=== PATIENT | male | born 1990 | race Caucasian/White ===

== ENCOUNTER 2019-01-18 15:17 | Emergency (ER) | payer OTHER ==
--- NOTE | 2019-01-18 15:22 | PDOC ---
Rapid Medical Evaluation Time Seen by Provider: 01/18/19 15:20 Medical Evaluation: 01/18/19 15:20 I have performed a brief in-person evaluation of this patient. The patient presents with a chief complaint of: left flank and LLQ pain Pertinent physical exam findings: Left CVAT. I have ordered the following: urine, labs The patient will proceed to the ED for further evaluation. Discharge Disposition - Diagnosis Flank pain - Referrals - Patient Instructions - Post Discharge Activity
[2019-01-18 15:44] LABS: BASO % 0.2 % (0-2.0); EOS % 0.1 % (0-4.5); HEMATOCRIT 42.1 % (35.4-49); HEMOGLOBIN 14.5 GM/dL (11.7-16.9); LYMPH % 10.3 % (8-40); MCH 30.5 pg (25.7-33.7); MCHC 34.4 g/dl (32.0-35.9); MEAN CELL VOLUME 88.7 fl (80-96); MEAN PLT VOLUME 7.7 fl (7.5-11.1); MONO % 5.2 % (3.8-10.2); NEUT % 84.2 % (42.8-82.8); PLATELET COUNT 227 K/MM3 (134-434); RBC 4.74 M/mm3 (4.00-5.60); RDW 13.3 % (11.9-15.9); WHITE BLOOD COUNT 9.9 K/mm3 (4.0-10.0)
[2019-01-18 16:13] LABS: ANION GAP 7 MMOL/L (8-16); BLOOD UREA NITROGEN 20 mg/dL (7-18); CALCIUM 8.6 mg/dL (8.5-10.1); CHLORIDE 102 mmol/L (98-107); CO2 26 mmol/L (21-32); CREATININE 0.8 mg/dL (0.55-1.3); GLUCOSE,RANDOM 104 mg/dL (74-106); POTASSIUM 4.1 mmol/L (3.5-5.1); SODIUM 135 mmol/L (136-145)
--- NOTE | 2019-01-18 16:46 | PDOC ---
Attending Attestation - Resident Resident Name: Madison Melgoza
--- NOTE | 2019-01-18 17:09 | PDOC ---
History of Present Illness - General Chief Complaint: Pain, Acute Stated Complaint: LF SIDE ABD PAIN Time Seen by Provider: 01/18/19 15:20 - History of Present Illness Initial Comments: 28yo M with no significant PMH presenting with pain on his left side overlying his left flank and LLQ. Patient states he has never had anything like this before. 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 It has been constant and gradually getting worse, rated 10 /10 and sharp. No surgical history. Last bowel movement was this afternoon and was a normal formed brown stool without blood. No surgical history. Patient denies dysuria or hematuria. No nausea or vomiting. Denies genital pain or penile discharge. Took tylenol in the afternoon with minor relief of pain. No fevers or chills. PCP: None Past History - Past Medical History Allergies/Adverse Reactions: Allergies Allergy/AdvReac Type Severity Reaction Status Date / Time No Known Allergies Allergy Verified 01/18/19 15:27 - Suicide/Smoking/Psychosocial Hx Smoking History: Current every day smoker Have you smoked in the past 12 months: No Number of Cigarettes Smoked Daily: 6 Information on smoking cessation initiated: No Hx Alcohol Use: No Drug/Substance Use Hx: No Review of Systems - Review of Systems Comments:: Constitutional: no fever, no chills HEENT: no throat pain, no dysphagia Cardiovascular: no chest pain, no palpitations Respiratory: no cough, no shortness of breath Gastrointestinal: no nausea, no vomiting Genitourinary: no dysuria, no frequency Musculoskeletal: no myalgia, no arthralgia Skin: no rash, no itching Neurologic: no headache, no weakness *Physical Exam - Vital Signs Last Vital Signs Temp Pulse Resp BP Pulse Ox 98.6 F 89 20 145/95 100 01/18/19 15:21 01/18/19 15:21 01/18/19 15:21 01/18/19 15:21 01/18/19 15:21 - Physical Exam Comments: General: Awake, alert, and fully oriented, in no acute distress Head: No signs of trauma Eyes: EOMI, sclera anicteric ENT: Moist mucus membranes Neck: Normal ROM, supple Lungs: Lungs clear, Normal breath sounds Cardio: Regular rhythm, S1 and S2 present Abdomen: Soft, nondistended. Left flank pain present radiating to LLQ. No overlying rash or lesion. No rebound, guarding, or masses : Normal testicular exam Extremities: Normal range of motion, Distal pulses present SKIN: Warm, Dry, normal turgor Neurologic: Cranial nerves II through XII grossly intact. Normal speech ED Treatment Course - LABORATORY CBC & Chemistry Diagram: 01/18/19 22:59 01/18/19 15:30 - ADDITIONAL ORDERS Additional order review: Laboratory Results 01/18/19 15:30 Sodium 135 L Potassium 4.1 Chloride 102 Carbon Dioxide 26 Anion Gap 7 L BUN 20 H Creatinine 0.8 Creat Clearance w eGFR 114.29 Random Glucose 104 Calcium 8.6 01/18/19 15:30 RBC 4.74 MCV 88.7 MCHC 34.4 RDW 13.3 MPV 7.7 Neutrophils % 84.2 H Lymphocytes % 10.3 Monocytes % 5.2 Eosinophils % 0.1 Basophils % 0.2 Medical Decision Making - Medical Decision Making 28yo M with no significant PMH presenting with pain on his left side overlying his left flank and LLQ. DDX including but not limited to muscle strain, nephrolithiasis, diverticulitis , testicular torsion Toradol 30mg IV given Renal US ordered to rule out obstruction Labs unremarkable 01/18/19 18:16 Patient signed out to Dr. Gabriel 01/18/19 19:33 *DC/Admit/Observation/Transfer Diagnosis at time of Disposition: Flank pain, Perinephric hematoma - Discharge Dispostion Disposition: TRANSFER ACUTE CARE/OTHER HOSP - Referrals - Patient Instructions - Post Discharge Activity
[2019-01-18 17:33] LABS: EPI CELLS 2.9 /HPF (0-5/HPF); PH,URINE 5.5 (5.0-8.0); URINE APPEARANCE CLEAR; URINE BACTERIA 24.7 /hpf (NEGATIVE); URINE BILIRUBIN NEGATIVE (NEGATIVE); URINE CASTS 20 /hpf (0-8); URINE COLOR DK YELLOW; URINE GLUCOSE (UA) NEGATIVE (NEGATIVE); URINE KETONE TRACE (NEGATIVE); URINE LEUK ESTERASE NEGATIVE (NEGATIVE); URINE NITRITE NEGATIVE (NEGATIVE); URINE PROTEIN 1+ (NEGATIVE); URINE RBC 7 /hpf (0-4); URINE WBC 1 /hpf (0-5)
[2019-01-18] MEDS ORDERED: KETOROLAC TROMETHAMINE 30 MG/1 ML VIAL IVPUSH ONE (17:40)
[2019-01-18] MEDS ORDERED: KETOROLAC TROMETHAMINE 30 MG/1 ML VIAL ONE (18:02)
--- NOTE | 2019-01-18 18:51 | PDOC ---
Attending Attestation - Resident Resident Name: Madison Melgoza - [facility] HPI: 01/18/19 18:51 The patient is a 28 year old male with no significant past medical history who presents to the ED with left sided flank pain and left lower abdominal pain after lifting a heavy plank of wood this morning. He denies ever experiencing pain this severe and reports the pain has been constant since onset and gradually increasing in severity. He reports the pain is sharp, 10/10 in severity. He denies testicular pain or swelling. He denies urinary changes. He denies changes to his BMs. He denies any other symptoms. No Surgical Hx - Physicial Exam PE: 01/18/19 18:51 GENERAL: Awake, alert, and fully oriented, in no acute distress HEAD: No signs of trauma EYES: PERRLA, EOMI, sclera anicteric, conjunctiva clear ENT: Auricles normal inspection, hearing grossly normal, nares patent, oropharynx clear without exudates. Moist mucosa NECK: Normal ROM, supple, no lymphadenopathy, JVD, or masses LUNGS: Breath sounds equal, clear to auscultation bilaterally. No wheezes, and no crackles HEART: Regular rate and rhythm, normal S1 and S2, no murmurs, rubs or gallops ABDOMEN: (+) Left CVA tenderness. Soft, nontender, normoactive bowel sounds. No guarding, no rebound. No masses EXTREMITIES: Normal range of motion, no edema. No clubbing or cyanosis. No cords, erythema, or tenderness NEUROLOGICAL: Cranial nerves II through XII grossly intact. Normal speech, normal gait SKIN: Warm, Dry, normal turgor, no rashes or lesions noted. <Patricia Ortiz - Last Filed: 01/18/19 18:51> - Medical Decision Making 01/20/19 09:53 Pt presents to the ED complaining of L sided flank pain. Symptoms most concerning for nephrolithiasis vs muscular flank pain. No concerning testicular symptoms or exam. Will check renal US and give pain control and reassess. <Marika Gallegos - Last Filed: 01/20/19 10:47> Attestations - Attestations 01/18/19 18:51 Documentation prepared by Patricia Ortiz, acting as esthetician and manager medical spa for Marika Gallegos MD <Patricia Ortiz - Last Filed: 01/18/19 18:51>
--- NOTE | 2019-01-18 19:34 | PDOC ---
*Physical Exam - Vital Signs Last Vital Signs Temp Pulse Resp BP Pulse Ox 98.6 F 89 20 145/95 100 01/18/19 15:21 01/18/19 15:21 01/18/19 15:21 01/18/19 15:21 01/18/19 15:21 ED Treatment Course - LABORATORY CBC & Chemistry Diagram: 01/18/19 22:59 01/18/19 15:30 - ADDITIONAL ORDERS Additional order review: Laboratory Results 01/18/19 01/18/19 17:22 15:30 Sodium 135 L Potassium 4.1 Chloride 102 Carbon Dioxide 26 Anion Gap 7 L BUN 20 H Creatinine 0.8 Creat Clearance w eGFR 114.29 Random Glucose 104 Calcium 8.6 Urine Color Dk yellow Urine Appearance Clear Urine pH 5.5 Ur Specific [place] 1.036 H Urine Protein 1+ H Urine Glucose (UA) Negative Urine Ketones Trace H Urine Blood Trace Urine Nitrite Negative Urine Bilirubin Negative Urine Urobilinogen 1.0 Ur Leukocyte Esterase Negative Urine WBC (Auto) 1 Urine RBC (Auto) 7 Urine Casts (Auto) 20 U Epithel Cells (Auto) 2.9 Urine Bacteria (Auto) 24.7 01/18/19 15:30 RBC 4.74 MCV 88.7 MCHC 34.4 RDW 13.3 MPV 7.7 Neutrophils % 84.2 H Lymphocytes % 10.3 Monocytes % 5.2 Eosinophils % 0.1 Basophils % 0.2 - Medications Given in the ED: ED Medications Discontinued Medications Generic Name Dose Route Start Last Admin Trade Name Freq PRN Reason Stop Dose Admin Ketorolac Tromethamine 30 mg 01/18/19 17:40 01/18/19 18:09 Toradol Injection - IVPUSH 01/18/19 17:41 30 mg ONCE ONE Administration Medical Decision Making - Medical Decision Making 01/18/19 19:[address] Melgoza. Patient is a 28 yo male w/ no significant pmh who presents for evaluation of left flank and lower quadrant pain. Patient noted to have trace blood on UA. US non-contributory. Patient currently pending CT abd/ pelvis for further evaluation. 01/18/19 22:25 Radiologist called to discuss presentation. Large hematoma noted around kidney w / small foci of hyperdense material possibly indicative of active bleeding. 01/18/19 22:37 Discussed with surgery who recommend hydration and urology consultation. Patient will also have pre-op labs. Patient complaining of further pain - 4mg morphine given. 01/18/19 23:02 Discussed patient with vascular who recommended urology consult and possible transfer. EKG negative. 01/18/19 23:10 Discussed with urology who recommended transfer to IR capable facility for close monitoring as needed and possible intervention. 01/18/19 23:16 Discussed with patient who requested transfer to [facility]. Transfer center contacted. 01/18/19 23:42 Dr. Mosley accepted pt. for transfer. Transferring to [facility] for advanced care capabilities. *DC/Admit/Observation/Transfer Diagnosis at time of Disposition: Flank pain, Perinephric hematoma - Discharge Dispostion Disposition: TRANSFER ACUTE CARE/OTHER HOSP - Referrals - Patient Instructions - Post Discharge Activity
[2019-01-18] MEDS ORDERED: SODIUM CHLORIDE 1,000 ML IV STA (22:34)
[2019-01-18] MEDS ORDERED: morphine CARPU-JECT 4 MG/1 ML DISP.SYRIN IVPUSH ONE ×2 (22:36→23:37)
[2019-01-18] MEDS ORDERED: ONDANSETRON 4 MG/2 ML VIAL IVPUSH ONE (22:45)
[2019-01-18] MEDS ORDERED: morphine SULFATE 4 MG/ML VIAL ONE (22:45)
[2019-01-18] MEDS ORDERED: ONDANSETRON 4 MG/2 ML VIAL ONE (22:46)
[2019-01-18 23:08] LABS: BASO % 0.2 % (0-2.0); EOS % 0.1 % (0-4.5); HEMATOCRIT 39.2 % (35.4-49); HEMOGLOBIN 13.6 GM/dL (11.7-16.9); LYMPH % 12.4 % (8-40); MCHC 34.8 g/dl (32.0-35.9); MEAN CELL VOLUME 89.1 fl (80-96); MEAN PLT VOLUME 7.8 fl (7.5-11.1); NEUT % 79.3 % (42.8-82.8); PLATELET COUNT 218 K/MM3 (134-434); RBC 4.39 M/mm3 (4.00-5.60); RDW 12.9 % (11.9-15.9); WHITE BLOOD COUNT 10.5 K/mm3 (4.0-10.0)
[2019-01-18 23:20] LABS: INR 1.07 (0.83-1.09); PROTHROMBIN TIME (PATIENT) 12.6 SEC (9.7-13.0)
[2019-01-18 23:22] LABS: ACTIVATED PTT 36.7 SECONDS (25.2-36.5)
[2019-01-18 23:27] VITALS: BP 116/84; PULSE 75; TEMP 98.1
[2019-01-19] MEDS ORDERED: morphine SULFATE 4 MG/ML VIAL ONE (00:43)
--- NOTE | 2019-01-19 11:01 | EKG ---
Test Reason : Blood Pressure : / mmHG Vent. Rate : 076 BPM Atrial Rate : 076 BPM P-R Int : 154 ms QRS Dur : 082 ms QT Int : 384 ms P-R-T Axes : 062 039 012 degrees QTc Int : 432 ms NORMAL SINUS RHYTHM NORMAL ECG NO PREVIOUS ECGS AVAILABLE Confirmed by CORA JACKSON, JORDANA ([id number]) on 01/19/2019 11:00:39 AM Referred By: Confirmed By:JORDANA SHEPHERD MD
== END 2019-01-18 23:47 | disposition short-term general hospital (02) ==
LOC: JER 15:17
PROC: 3E033NZ Introduction of Analgesics, Hypnotics, Sedatives into Peripheral Vein, Percutaneous Approach (ICD-10-PCS; principal; 2019-01-18)
PROC: 3E033NZ Introduction of Analgesics, Hypnotics, Sedatives into Peripheral Vein, Percutaneous Approach (ICD-10-PCS; 2019-01-18)
PROC: 3E0333Z Introduction of Anti-inflammatory into Peripheral Vein, Percutaneous Approach (ICD-10-PCS; 2019-01-18)
PROC: 3E033GC Introduction of Other Therapeutic Substance into Peripheral Vein, Percutaneous Approach (ICD-10-PCS; 2019-01-18)
DX: S37.022A Major contusion of left kidney, initial encounter (principal); X50.0XXA Overexertion from strenuous movement or load, initial encounter; Y93.H3 Activity, building and construction; Y92.61 Building [any] under construction as the place of occurrence of the external cause; Y99.0 Civilian activity done for income or pay
CPT/HCPCS: 36415; 74177-TC; 76775-TC; 80048; 81003; 85025; 85610; 85730; 86850; 86900; 86901; 87086; 93005; 93010; 96374; 96375; 96376; 99284-25; J7030